=== PATIENT | male | born 1975 | race Caucasian/White ===

== ENCOUNTER 2022-10-14 05:43 | Emergency (ER) | payer OTHER, SELFPAY ==
[2022-10-14 05:52] VITALS: BP 133/90; PULSE 59; RESP 16; TEMP 36.8; O2SAT 99; BMI 28.1
--- NOTE | 2022-10-14 06:10 | CRLHL7_ITS ---
For Patients: As a result of the Century Cures Act, medical imaging exams and procedure reports are released immediately into your electronic medical record. You may view this report before your referring provider. If you have questions, please contact your health care provider. INDICATION: Chest pain. TECHNIQUE: Chest 2 views. COMPARISON: None. FINDINGS: Cardiovascular and mediastinum: Heart size and vasculature are normal in caliber and appearance. Lungs and pleural spaces: Lungs are clear. No sign of infiltrate or mass. No sign of pleural effusion. No pneumothorax. Bones and soft tissues: No significant findings. IMPRESSION: No acute or significant findings. Dictated by Naresh Alvarez MD @ 10/15/2022 9:04:00 PM (Electronically Signed)
[2022-10-14] MEDS: ASPIRIN 81 MG TAB.CHEW 162 MG PO (06:15)
--- NOTE | 2022-10-14 06:19 | ED.GENADULT ---
HPI - General Adult General Chief complaint: Chest Pain Stated complaint: Chest pain Time Seen by Provider: 10/14/22 05:51 Source: patient and family Mode of arrival: ambulatory Limitations: no limitations History of Present Illness HPI narrative: 47-year-old male presents the emergency department with chest pain that started at 4:00 a.m. this morning, about 90 minutes prior to arrival. Pain was constant, lasting about 10 minutes, then started to dissipate as he got up and got moving. If he would roll over onto his left side again or begin moving his left arm, the pain would return. If not radiate, it was not accompanied by shortness of breath, nausea, palpitations. No prior history of similar episodes, no injury or trauma. Chest pain is no longer reproducible. No personal history of heart disease, arrhythmias, DVT or PE. No prior stress test. He did not try any interventions at home prior to coming to the emergency department. Chest pain is no longer present. He can no longer reproduce the pain either. He has otherwise been well, no recent illness, fevers, cough, congestion. No known sick contacts, no pertinent travel. Did not try taking any medication to help with his symptoms. Past medical history is notable for migraine disorder, takes daily propranolol as a preventative medication. No allergies. Socially is a nonsmoker with no other risk factors for heart disease. Family history is negative for heart disease and premature coronary artery disease. ROS is only notable for the chest pain as described above, otherwise negative times 15 systems. Related Data Home Medications Medication Instructions Recorded Confirmed propranolol 60 mg capsule,24 60 mg PO DAILY 10/14/22 10/14/22 hr,extended release Allergies Allergy/AdvReac Type Severity Reaction Status Date / Time No Known Drug Allergies Allergy Verified 10/14/22 05:54 [facility] Medical History Migraines Surgical History History of tympanoplasty Social History Smoking Status: Never smoker Second hand tobacco smoke exposure: No How often do you have a drink containing alcohol: never How often do you have six or more drinks on one occasion: Never AUDIT-C Alcohol total score: 0 Non-prescribed substance use: denies use Exam Const: Vital Signs, click to edit/add: Vital Signs - 24 hr 10/14/22 05:52 Temperature 98.2 F Pulse Rate [Right Pulse Oximeter] 59 L Respiratory Rate 16 Blood Pressure [Le ft Upper Arm] 133/90 H Pulse Oximetry 99 Oxygen Delivery Me thod Room Air Documenting provider has reviewed patient's vital signs: yes Common normals: no apparent distress General appearance: cooperative, comfortable and well kempt HENMT: Common normals: normocephalic Head and scalp: normocephalic Mouth: oral and palatal mucosa normal Throat: posterior oropharynx normal Eye: Common normals: PERRL, EOMs intact bilaterally and conjunctivae normal Conjunctiva: conjunctiva(e) normal Pupil: PERRL Neck & C-Spine: Common normals: full ROM and no lymphadenopathy Chest: Common normals: inspection of chest normal and palpation of chest normal Resp: Common normals: normal respiratory effort, no retractions, no use of accessory muscles and clear to auscultation bilaterally Effort & inspection: able to speak in complete sentences Auscultation: clear to auscultation bilaterally Cardio: Common normals: regular rate, regular rhythm, S1 normal heart sound, S2 normal heart sound, no murmurs and peripheral pulses 2+ throughout Rate: regular rate Rhythm: regular rhythm Heart sounds: S1 normal and S2 normal Peripheral pulses: pulses 2+ throughout GI: Common normals: Normal to inspection, nondistended, normoactive bowel sounds present, soft to palpation, non-tender, no hepatosplenomegaly and no masses Palpation: soft and no hepatosplenomegaly Extremity: Common normals: normal to inspection and no pedal edema Neuro: Speech: speech normal Gait (neuro): normal gait Motor exam: strength 5/5 throughout, no tremor noted and no movement abnormalities noted Psych: Common normals: thought process normal and speech normal Appearance: well kempt Attitude: engaged Activity/motor behavior: appropriate eye contact Speech: normal speech Mood and affect: euthymic mood Thought process: normal thought process Insight: insight good Judgement: judgment good Skin: Common normals: no rashes or lesions noted General skin exam: no rashes or lesions noted Course Vital Signs Vital signs: Initial Vital Signs Respiratory Effort Spontaneous 10/14/22 05:44 Respiratory Depth Normal 10/14/22 05:44 Vital Signs Temperature 98.2 F 10/14/22 05:52 Pulse Rate 59 L 10/14/22 05:52 Respiratory Rate 16 10/14/22 05:52 Blood Pressure 133/90 H 10/14/22 05:52 Pulse Oximetry 99 10/14/22 05:52 Oxygen Delivery Method 10/14/22 05:52 Temperature 98.2 F 10/14/22 05:52 Pulse Rate 59 L 10/14/22 05:52 Respiratory Rate 16 10/14/22 05:52 Blood Pressure 133/90 H 10/14/22 05:52 Pulse Oximetry 99 10/14/22 05:52 Oxygen Delivery Method 10/14/22 05:52 Medical Decision Making MDM Narrative Medical decision making narrative: Differential diagnosis including acute coronary syndrome, arrhythmia, PE, pleurisy, upper respiratory infection, musculoskeletal etiology. Based on the fact that the symptoms were initially reproducible and intra changeable with muscular movements, I do suspect a muscular etiology. Blood pressures are mildly elevated, would recommend mild workup. Will be given aspirin, chest x-ray, swabs to look for viral etiology because they are so common right now and also troponin. EKG is performed and shows normal sinus rhythm with normal axis, rate of [address] or T-wave abnormalities, good R-wave progression per my interpretation, reassuring. Labs will take about an hour to return, will update patient with findings. Update 7:00 a.m.: Symptoms have not returned, normal lab findings reviewed with patient. Did discuss all the findings on x-ray which do show some more increased kyphosis than would be expected for age and some functional measures to help prevent worsening and start to correct this. Lab Data Lab results reviewed: Yes I reviewed the patient's lab results Labs: Lab Results 10/14/22 10/14/22 10/14/22 Range/Units 06:15 06:20 06:20 WBC 6.97 (4.50-11.00) K/uL RBC 5.15 (4.30-5.90) m/uL Hgb 14.7 (13.5-17.5) gm/dL Hct 43.6 (37.0-53.0) % MCV 85 (80-100) fL MCH 29 (26-34) pg MCHC 34 (32-36) gm/dL Plt Count 285 (140-440) K/uL Neut % (Auto) 56.1 (42.0-72.0) % Lymph % (Auto) 29.1 (20-44) % [facility] % (Auto) 10.6 (0.0-11.0) % Eos % (Auto) 2.9 (0.0-7.0) % Baso % (Auto) 0.6 (0.0-3.0) % Neut # (Auto) 3.90 (1.7-7.0) K/uL Lymph # (Auto) 2.00 (0.90-2.90) K/uL [facility] # (Auto) 0.70 (0.00-0.90) K/UL Eos # (Auto) 0.20 (0.00-0.50) K/uL Baso # (Auto) 0.00 (0.00-0.30) K/uL Sodium 140 (135-149) mmol/L Potassium 4.2 (3.6-5.1) mmol/L Chloride 108 (96-114) mmol/L Carbon Dioxide 26 (20-32) mmol/L BUN 16 (5-24) mg/dL Creatinine 1.2 (0.5-1.5) mg/dL Estimated Creat Clear 76.10 Estimated GFR 75 ml/min Glucose 97 (60-115) mg/dL Calcium 8.9 (8.4-10.6) mg/dL SARS-CoV-2 (PCR) Negative SARS-CoV-2 (Negative) Influenza Type A (PCR) Negative PCR FLU A (Negative) Influenza Type B (PCR) Negative PCR FLU B (Negative) RSV (PCR) Negative PCR RSV (Negative) POC Troponin I (0.01-0.04) ng/ml 10/14/22 Range/Units 06:20 WBC (4.50-11.00) K/uL RBC (4.30-5.90) m/uL Hgb (13.5-17.5) gm/dL Hct (37.0-53.0) % MCV (80-100) fL MCH (26-34) pg MCHC (32-36) gm/dL Plt Count (140-440) K/uL Neut % (Auto) (42.0-72.0) % Lymph % (Auto) (20-44) % [facility] % (Auto) (0.0-11.0) % Eos % (Auto) (0.0-7.0) % Baso % (Auto) (0.0-3.0) % Neut # (Auto) (1.7-7.0) K/uL Lymph # (Auto) (0.90-2.90) K/uL [facility] # (Auto) (0.00-0.90) K/UL Eos # (Auto) (0.00-0.50) K/uL Baso # (Auto) (0.00-0.30) K/uL Sodium (135-149) mmol/L Potassium (3.6-5.1) mmol/L Chloride (96-114) mmol/L Carbon Dioxide (20-32) mmol/L BUN (5-24) mg/dL Creatinine (0.5-1.5) mg/dL Estimated Creat Clear Estimated GFR ml/min Glucose (60-115) mg/dL Calcium (8.4-10.6) mg/dL SARS-CoV-2 (PCR) (Negative) Influenza Type A (PCR) (Negative) Influenza Type B (PCR) (Negative) RSV (PCR) (Negative) POC Troponin I 0.00 L (0.01-0.04) ng/ml Imaging Data Chest x-ray: Attestation: I have reviewed the pertinent imaging results. My impression: No acute cardiopulmonary process, but does seem to have more kyphosis than would be expected for male his age Discharge Plan Discharge Clinical Impression: Chest pain Patient Disposition: Home w/ Parent or Adult Condition: Improved Instructions: Noncardiac Chest Pain (ED) Additional Instructions: Your chest pain is most likely related to inflammation of the lining of the lungs, cold pleurisy. I suspect this since you could perform different maneuvers to make your pain better or worse. This tends to lead to either a musculoskeletal etiology or inflammation of the lining of the lungs. There are no signs of pneumonia, heart attack, abnormal heart rhythm, other dangerous abnormalities. This is all reassuring. Often, someone will have this pain come and go over the course of a few days or even up to 2 weeks. It is okay to take Tylenol and/or ibuprofen to help with the pain. If he began running fevers over 100.4, the chest pain is accompanied by passing out, rapid heart rate, severe weakness or other really unusual abnormalities, please seek repeat medical input. You may return to full typical duty. You do have some changes in your x-ray that show a little more curvature change than would be expected for someone your age, I suspect this is related to the nature of your work. Consider upper back strengthening and or working with a personal injury law specialist to help correct this. This could be contributing to your pain. Activity Level: No Restrictions Discharge Diet: Regular Prescriptions: No Action propranolol 60 mg capsule,extended release 24 hr 60 mg PO DAILY Label Comments: TAKE 1 CAPSULE BY MOUTH ONCE DAILY Stand Alone Forms: [facility] Info Instructions
[2022-10-14 06:47] LABS: Eosinophils Percent Auto 2.9 % (0.0-7.0); Hematocrit 43.6 % (37.0-53.0); Hemoglobin* 14.7 gm/dL (13.5-17.5); Lymphocytes Percent Auto 29.1 % (20-44); Mean Corpuscular HGB Conc 34 gm/dL (32-36); Mean Corpuscular Hemoglobin 29 pg (26-34); Mean Corpuscular Volume 85 fL (80-100); Monocytes Percent Auto 10.6 % (0.0-11.0); Neutrophils Percent Auto 56.1 % (42.0-72.0); Platelet Count* 285 K/uL (140-440); Red Blood Count 5.15 m/uL (4.30-5.90); White Blood Count* 6.97 K/uL (4.50-11.00)
[2022-10-14 06:48] LABS: Basophils Percent Auto 0.6 % (0.0-3.0); Blood Urea Nitrogen* 16 mg/dL (5-24); Calcium* 8.9 mg/dL (8.4-10.6); Carbon Dioxide* 26 mmol/L (20-32); Chloride* 108 mmol/L (96-114); Creatinine* 1.2 mg/dL (0.5-1.5); Estimated Glomerular Filt Rate 75 ml/min; Glucose* 97 mg/dL (60-115); Immature Granulocytes Pct Auto 0.7 %; Potassium* 4.2 mmol/L (3.6-5.1); Slide Review Reflex No; Sodium* 140 mmol/L (135-149)
[2022-10-14 07:15] LABS: PCR FLU A Negative PCR FLU A (Negative); PCR FLU B Negative PCR FLU B (Negative); PCR RSV Negative PCR RSV (Negative)
[2022-10-14 07:22] LABS: SARS PCR* Negative SARS-CoV-2 (Negative)
== END 2022-10-14 07:50 | disposition home or self-care (01) ==
PROVIDERS: Emergency Provider Family Medicine; PCP Family Medicine
DX: R07.9 Chest pain, unspecified (principal)
CPT/HCPCS: 36415; 71046; 80048; 84484; 85025; 87502; 87634; 87635; 93005; 99283; 99284; A9270